=== PATIENT | female | born 1970 | race Caucasian/White ===

== ENCOUNTER 2019-02-25 08:21 | Emergency (ER) | payer OTHER ==
[~2019-02-25] VITALS: Ht 165.1 cm; Wt 104.5 kg
[2019-02-25] MEDS ORDERED: LIDO5DIS41 TD (08:33)
[2019-02-25] MEDS ORDERED: EPIN0.3I11 IM (08:33)
[2019-02-25] MEDS ORDERED: CYCL10TA PO (08:33)
[2019-02-25] MEDS ORDERED: NS 1,000 ML IV ONE (09:00)
[2019-02-25 09:30] LABS: BASO % 0.5 % (0.0-1.0); EOS # 0.2 10^3/uL (0.0-0.5); EOS % 1.9 % (0.0-3.0); HEMATOCRIT 41.9 % (36.0-47.0); HEMOGLOBIN 14.2 g/dl (12.0-15.5); LYMPH # 1.7 10^3/uL (1.5-5.0); LYMPH % 18.8 % (24.0-44.0); MEAN CORPUSCULAR HEMOGLOBIN 32.1 pg (27.0-33.0); MEAN CORPUSCULAR HGB CONC 33.9 g/dl (32.0-36.5); MEAN CORPUSCULAR VOLUME 94.8 fl (80.0-96.0); MONO # 0.6 10^3/uL (0.0-0.8); MONO % 6.6 % (0.0-5.0); NEUTROPHILS # 6.4 10^3/uL (1.5-8.5); PLATELET COUNT, AUTOMATED 234 10^3/uL (150-450); RED BLOOD COUNT 4.42 10^6/uL (4.00-5.40); WHITE BLOOD COUNT 8.8 10^3/uL (4.0-10.0)
[2019-02-25] MEDS: HYDROMORPHONE HCL 0.5 MG/ 0.5 ML SYRINGE (J1170 PER 1) IV PRN ×2 (09:30→10:08)
--- NOTE | 2019-02-25 09:36 | REP ---
Clinical: Pain. Technique: Axial noncontrast images of the lumbosacral spine with coronal and sagittal re-formations. Findings: Alignment and lordosis is maintained and there is no evidence for acute fracture / compression injury or subluxation. There is evidence for prior partial laminectomy along the right S1 level. 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 Impression: 1. Prior partial laminectomy. 2. Hypertrophic changes at L3-S1 causing mild chronic canal stenosis. Electronically Signed by Tai Villagomez MD 02/25/2019 09:27 A
[2019-02-25 10:11] LABS: ALBUMIN 3.3 GM/DL (3.2-5.2); ALT/SGPT 30 U/L (12-78); BILIRUBIN,DIRECT < 0.1 MG/DL (0.0-0.2); BILIRUBIN,TOTAL 0.4 MG/DL (0.2-1.0); BLOOD UREA NITROGEN 13 MG/DL (7-18); CALCIUM LEVEL 8.8 MG/DL (8.5-10.1); CARBON DIOXIDE LEVEL 26 MEQ/L (21-32); CHLORIDE LEVEL 107 MEQ/L (98-107); CREATININE FOR GFR 0.72 MG/DL (0.55-1.30); GLOMERULAR FILTRATION RATE > 60.0 (>58); GLUCOSE, FASTING 91 MG/DL (70-100); POTASSIUM SERUM 4.5 MEQ/L (3.5-5.1); SODIUM LEVEL 140 MEQ/L (136-145); TOTAL PROTEIN 7.5 GM/DL (6.4-8.2)
[2019-02-25] MEDS ORDERED: KETOROLAC 30 MG/ML VIAL (J1885) IV ONE (11:00)
[2019-02-25] MEDS ORDERED: diazePAM 10 MG/2 ML INJ (J3360) IV ONE (12:15)
[2019-02-25] MEDS ORDERED: diazePAM 2 MG TAB PO STA (14:45)
[2019-02-25] MEDS ORDERED: VALI5TAB PO (14:47)
[2019-02-25 15:27] VITALS: BP 145/70
== END 2019-02-25 15:30 | disposition home or self-care (01) ==
LOC: EDBD 08:21 → M ED 08:21
DX: M62.830 Muscle spasm of back (principal); F17.200 Nicotine dependence, unspecified, uncomplicated; Z79.899 Other long term (current) drug therapy; Z91.030 Bee allergy status; Z88.5 Allergy status to narcotic agent
CPT/HCPCS: 72131; 72148; 80048; 80076; 81001; 85025; 96374; 96375; 96376; 99284; J1170; J1885; J3360

== ENCOUNTER → 2020-06-02 | Outpatient (CLI) | payer OTHER ==
[~2020-06-02] MED LIST: CYCL-707 PO; EPIN0.3I11 IM; LIDO5DIS41 TD; VALI5TAB PO
--- NOTE | 2020-06-02 17:03 | REP ---
INDICATION: N63.10 MASS RT LATERAL BREAST. Right breast lump that is painful x6 months. The patient reports seeing a clinician 1 month ago and was put on a 7 day course of antibiotics. COMPARISON: There is no comparison breast imaging. TECHNIQUE: Bilateral CC and MLO) view(s) were taken. A skin marker is affixed to the skin at the site of the palpable lump of the right breast. Routine views are augmented by diagnostic magnified focal spot images as well as 3D tomography. Targeted right breast sonography is carried out. FINDINGS: Scattered fibroglandular elements are seen bilaterally. Tangential view at the level of the skin marker demonstrates cyst very subtle dermal thickening at the site of the palpable lump. No mass is seen in the underlying breast parenchyma on an right-sided mammographic views or 3D tomography. No suspicious abnormality is seen mammographically on either side. The Volpara volumetric breast density pattern is B. Targeted right breast sonography: Mildly heterogeneous background echotexture is seen. No suspicious mass or acoustic shadowing is seen in the breast parenchyma. Scanning at the site of the palpable lump demonstrates a elongate hypoechoic area of thickening of the dermis consistent with a skin lesion. This measures 18 by 2 x 10 mm in overall dimension. This is nonspecific. It could be post inflammatory changes. No other significant sonographic finding.. IMPRESSION: BI-RADS category 3 probably benign findings. Focal area of dermal thickening seen on mammography and ultrasound at the site of the palpable abnormality. This may be post inflammatory changes. Interval follow-up is recommended. This patient's Tyrer-Cuzick lifetime breast cancer risk assessment score is 32.5%. Enhanced screening in the form of annual bilateral breast MRI scanning is warranted. This mammogram was interpreted with the aid of an FDA-approved computer-aided detection system. The patient states she had a clinical breast exam in . The patient letter being requested is M1. RECOMMENDATION: Repeat unilateral right breast mammography and targeted right breast sonography recommended in 6 months time. Clinical follow-up is advised. Bilateral breast MRI scanning is recommended annually, beginning 6 months from now. <Electronically signed by Sam Tejada > 06/02/20 [id number]
== END ==
LOC: M WHC 13:32
PROVIDERS: ATTEND Nurse Practitioner Family
DX: N63.10 Unspecified lump in the right breast, unspecified quadrant (principal)
CPT/HCPCS: 76642; 77066; G0279